=== PATIENT | male | born 1940 | race Caucasian/White ===

== ENCOUNTER → 2016-09-26 | Outpatient (CLI) | payer MEDICARE ==
[~2016-09-26] MED LIST: REGADENOSON 0.4 MG/5 ML DISP.SYRIN. IV ONE
--- NOTE | 2016-09-26 18:53 | PCVCIMAG ---
APPROVED REPORT Study performed: 09/26/2016 07:57:20 EXAM: Comprehensive 2D, Doppler, and color-flow Echocardiogram Other Information Study Quality: Adequate Indications Atrial Fibrillation Hypertension/HDD 2D Dimensions LVEF(%): 39.41 (>50%) IVSd: 12.77 (7-11mm) LVDd: 46.88 mm PWd: 13.33 (7-11mm) LVDs: 37.93 (25-40mm) Left Atrium: 50.78 (27-40mm) Aortic Root: 35.04 mm LV Single Plane 4CH: 51.32 % LV Single Plane 2CH: 58.74 %Banks's LVEF: 55.03 % Biplane EF: 57.1 % Volumes Left Atrial Volume (Systole) Single Plane 4CH: 119.08 mLSingle Plane 2CH: 94.68 mL LA ESV Index: 51.00 mL/m2 Aortic Valve AoV Peak Roby.: 1.35 m/s AO Peak Gr.: 7.30 mmHgLVOT Max P.88 mmHg LVOT Max V: 0.98 m/s Pulmonary Valve PV Peak Roby.: 0.80 m/sPV Peak Gr.: 2.59 mmHg Tricuspid Valve TR Peak Roby.: 2.84 m/s TR Peak Gr.: 32.17 mmHg Left Ventricle The left ventricle is normal size. There is normal LV segmental wall motion. Mild concentric left ventricular hypertrophy. Left ventricular systolic function is normal. LVEF is 50-55%. The left ventricular diastolic function is normal. Right Ventricle Right ventricle is mildly dilated. The right ventricular systolic function is normal. Atria Left atrium is severely dilated. Right atrium is severely dilated. Aortic Valve The aortic valve is normal in structure. No aortic regurgitation is present. There is no aortic valvular stenosis. Mitral Valve The mitral valve is normal in structure. Mild mitral regurgitation. No evidence of mitral valve stenosis. Tricuspid Valve The tricuspid valve is normal in structure. Mild to moderate tricuspid regurgitation with PAP of 42 mmHg. Pulmonic Valve The pulmonary valve is normal in structure. There is no pulmonic valvular regurgitation. Great Vessels The aortic root is normal in size. IVC is normal in size and collapses with >50% inspiration Pericardium There is no pericardial effusion. <Conclusion> The left ventricle is normal size. Mild concentric left ventricular hypertrophy. Left ventricular systolic function is normal. LVEF is 50-55%. Right ventricle is mildly dilated. Left atrium is severely dilated. The aortic valve is normal in structure. Right atrium is severely dilated. Mild to moderate tricuspid regurgitation with PAP of 42 mmHg. Mild mitral regurgitation. The aortic root is normal in size. There is no pericardial effusion.
--- NOTE | 2016-09-26 18:57 | PCVCIMAG ---
APPROVED REPORT Exam: Nuclear Stress Test Indication: Atrial Fibrillation, Chest pain Patient Location: Out-Patient Stress Nurse: Chary Sanchez RN MT Tech:CLAYTON Bird Ht: 5 ft 8 in Wt: 230 lbs BSA: 2.17 m2 HR: 59 bpm BP: 192/99 mmHg BMI: 34.9 Rhythm: Atrial Fibrillation Medical History Medical History: Atrial Fibrillation, HTN, Hyperlipidemia Medications: HCTZ, Ramipril, Simvastatin Allergies: No known drug allergies Cardiac Risk Factors: Age Pretest Chest Pain Characteristics: No chest pain Exercise History: Physically active Physical Disabilities: Back and Knees Meds Held (24 hrs): Held all meds - pt decision NM EXAM: Myocardial Perfusion REST/STRESS Imaging Protocol: Rest Tc-99m/Stress Tc-99m 1 day Resting Data Rest SPECT myocardial perfusion imaging was performed in supine position 45 minutes following the intravenous injection of 17.7 mCi of Tc-99m Sestamibi. Time of rest injection: 0840 Date: 09/26/2016 Pharmacologic Stress Pharmacologic stress test was performed by injecting Regadenoson 0.4 mg IV push followed by the intravenous injection of 44.1 mCi of Tc-99m Sestamibi. Time of stress injection: 1005 Date: 09/26/2016 Administration Route: IV Administration Site: Left Hand Gated Stress SPECT was performed 45 minutes after stress injection. The images were gated to evaluate regional wall motion and calculate left ventricular ejection fraction. Study Quality Study: Good Study Data Post stress, the left ventricular ejection was 75%.. SSS: 2 SRS: 0 SDS: 2 TID = 0.87. Perfusion No evidence of stress induced ischemia or prior myocardial infarction. Wall Motion Normal left ventricular size and function with no regional wall motion abnormalities. Nuclear Conclusion No evidence of stress induced ischemia or prior myocardial infarction. Normal left ventricular size and function with no regional wall motion abnormalities. Post stress, the left ventricular ejection was 75%.. No prior study available for comparison. Interpreted by: Jeronimo Herring MD Electronically Approved: 09/26/2016 12:59:08 Stress Test Details Stress Test: Pharmacologic stress was paired with low level exercise. Reason for pharmacologic stress test: physical limitation. HR Resting HR: 59 bpmMax Heart Rate (APMHR): 143 bpm Max HR Achieved: 103 bpmTarget HR (85% APMHR): 121 bpm % of APMHR: 72 Recovery HR: 69 bpm BP Resting BP: 199/92 mmHg Max BP: 142/88 mmHg Recovery BP: 186/80 mmHg ECG Resting ECG: Atrial Fibrillation Stress ECG: Atrial Fibrillation, isolated PVCs Recovery ECG: Atrial Fibrillation Recovery ST Change: None Clinical Reason for Termination: Completed protocol Stress Symptoms: Leg Fatigue, resolved during recovery. Exercise duration: 4 min 00 sec Exercise capacity: 1.6 METs Symptoms resolved during recovery.
== END | disposition home or self-care (01) ==
LOC: PCVCIMAG 07:53
PROVIDERS: ATTEND Internal Medicine Cardiovascular Disease
DX: I08.1 Rheumatic disorders of both mitral and tricuspid valves (principal); I48.91 Unspecified atrial fibrillation; I10 Essential (primary) hypertension; E78.5 Hyperlipidemia, unspecified; Z79.899 Other long term (current) drug therapy
CPT/HCPCS: 78452; 93017; 93306; A9500; J2785

== ENCOUNTER → 2016-12-26 | Outpatient (CLI) | payer MEDICARE | END | disposition home or self-care (01) | LOC: PCVCCLINIC 13:45 | PROVIDERS: ATTEND Internal Medicine Cardiovascular Disease | DX: I48.91 Unspecified atrial fibrillation (principal); I10 Essential (primary) hypertension; E78.5 Hyperlipidemia, unspecified; Z79.899 Other long term (current) drug therapy | CPT/HCPCS: 93005; G0463 ==

== ENCOUNTER → 2017-08-08 | Outpatient (CLI) | payer MEDICARE | END | disposition home or self-care (01) | LOC: PCVCCLINIC 13:12 | DX: I48.91 Unspecified atrial fibrillation (principal); I10 Essential (primary) hypertension; E78.5 Hyperlipidemia, unspecified; R94.31 Abnormal electrocardiogram [ECG] [EKG]; Z79.899 Other long term (current) drug therapy | CPT/HCPCS: 80061; 93005; G0463 ==

== ENCOUNTER → 2018-05-26 | Outpatient (CLI) | payer MEDICARE | END | disposition home or self-care (01) | LOC: PCVCCLINIC 11:39 | PROVIDERS: ATTEND Internal Medicine Cardiovascular Disease | DX: I48.91 Unspecified atrial fibrillation (principal); I10 Essential (primary) hypertension; I36.1 Nonrheumatic tricuspid (valve) insufficiency; I34.0 Nonrheumatic mitral (valve) insufficiency; I51.7 Cardiomegaly; E78.5 Hyperlipidemia, unspecified | CPT/HCPCS: 36415; 80061; 93005; G0463 ==

== ENCOUNTER → 2018-12-19 | Outpatient (CLI) | payer MEDICARE ==
--- NOTE | 2018-12-19 12:05 | PCVCIMAG ---
APPROVED REPORT Study performed: 12/19/2018 08:31:56 EXAM: Comprehensive 2D, Doppler, and color-flow Echocardiogram Patient Location: Echo lab Status: routine BSA: 2.19 HR: 68 bpmBP: 180/78 mmHg Rhythm: NSR Other Information Study Quality: Adequate Risk Factors: Cardiac Risk Factors: HTN, Hyperlipidemia Indications Atrial Fibrillation tricuspid regurgitation 2D Dimensions IVSd: 13.29 (7-11mm) LVDd: 46.95 mm PWd: 13.34 (7-11mm)Ascending Ao: 35.04 (22-36mm) LVDs: 29.11 (25-40mm) Left Atrium: 51.34 (27-40mm) Aortic Root: 31.96 mm LV Single Plane 4CH: 47.67 % LV Single Plane 2CH: 49.72 % Biplane EF: 48.2 % Volumes Left Atrial Volume (Systole) Single Plane 4CH: 105.93 mLSingle Plane 2CH: 134.11 mL LA ESV Index: 58.00 mL/m2 Aortic Valve AoV Peak Roby.: 1.54 m/s AO Peak Gr.: 9.51 mmHgLVOT Max P.39 mmHg LVOT Max V: 0.92 m/s Pulmonary Valve PV Peak Roby.: 1.10 m/sPV Peak Gr.: 4.89 mmHg Tricuspid Valve TR Peak Roby.: 2.87 m/s TR Peak Gr.: 33.06 mmHg Left Ventricle The left ventricle is normal size. There is normal LV segmental wall motion. Mild concentric left ventricular hypertrophy. Left ventricular systolic function is within lower limits of normal. LVEF is 50%. This study is not technically sufficient to allow evaluation of the LV diastolic function due to atrial fibrillation. Right Ventricle Right ventricle is mildly dilated. The right ventricular systolic function is normal. Atria Left atrium is severely dilated. Right atrium is severely dilated. Aortic Valve The aortic valve is normal in structure. No aortic regurgitation is present. There is no aortic valvular stenosis. Mitral Valve The mitral valve is normal in structure. There is no mitral valve regurgitation noted. No evidence of mitral valve stenosis. Tricuspid Valve The tricuspid valve is normal in structure. Mild to moderate tricuspid regurgitation with PAP of 40 mmHg. Pulmonic Valve The pulmonary valve is normal in structure. Trace pulmonic regurgitation. Great Vessels The aortic root is normal in size. IVC is normal in size and collapses >50% with inspiration. Pericardium There is no pericardial effusion. There is no pleural effusion. <Conclusion> The left ventricle is normal size. Mild concentric left ventricular hypertrophy. LVEF is 50%. This study is not technically sufficient to allow evaluation of the LV diastolic function due to atrial fibrillation. Right ventricle is mildly dilated. Left atrium is severely dilated. Right atrium is severely dilated. The aortic valve is normal in structure. There is no mitral valve regurgitation noted. Mild to moderate tricuspid regurgitation with PAP of 40 mmHg. The aortic root is normal in size. There is no pericardial effusion.
== END | disposition home or self-care (01) ==
LOC: PCVCIMAG 08:55
PROVIDERS: ATTEND Internal Medicine Cardiovascular Disease
DX: I07.1 Rheumatic tricuspid insufficiency (principal); I11.9 Hypertensive heart disease without heart failure; E11.9 Type 2 diabetes mellitus without complications; I48.91 Unspecified atrial fibrillation; E78.5 Hyperlipidemia, unspecified; D68.59 Other primary thrombophilia
CPT/HCPCS: 36415; 80061; 93005; 93306; G0463

== ENCOUNTER → 2019-03-03 | Outpatient (CLI) | payer MEDICARE ==
--- NOTE | 2019-03-03 14:09 | PCVCIMAG ---
APPROVED REPORT Study performed: 03/03/2019 10:26:00 Exam: Stress Echocardiogram Indication: Atrial Fibrillation, dyspnea on exedrtion, htn, dm Patient Location: Echo lab Stress Nurse: Beata Olmstead RN Status: routine Ht: 5 ft 8 in HR: 70 bpm BP: 160/80 mmHg Rhythm: Atrial Fibrillation Procedure The patient underwent an Exercise Stress Test using the Ernie Protocol. Blood pressure, heart rate, and EKG were monitored. An Echocardiogram was performed by education technician in four stages in quad fashion. At peak stress, four selected images were obtained and placed side by side with resting images for comparison. Stress Test Details Stress Test: Exercise stress testing was performed using a Ernie protocol. HR Resting HR: 74 bpmMax Heart Rate (APMHR): 140 bpm Max HR Achieved: 136 bpmTarget HR (85% APMHR): 119 bpm % of APMHR: 97 Recovery HR: 75 bpm HR response to stress: Normal HR response to stress BP Resting BP: 160/80 mmHg Max BP: 190/84 mmHg Recovery BP: 154/80 mmHg BP response to stress: Normal blood pressure response to stress. ECG Resting ECG: Atrial Fibrillation w/ PVCs Stress ECG: Atrial Fibrillation ST Change: Normal Arrhythmia: frequent PVCs Recovery ECG: Atrial Fibrillation Recovery ST Change: Normal Recovery Arrhythmia: PVCs Clinical Reason for Termination: Maximal effort, Dyspnea Stress Symptoms: Dyspnea Exercise duration: 4 min 6 sec Highest Stage Achieved: Stage 2: 2.5 mph at 12% grade. Exercise capacity: 7 METs Overall Exercise Capacity for Age: Poor Scale: Sedentary Angina Score: None Pre-Stress Echo The resting Echocardiogram showed normal left ventricular contractility with an estimated Ejection Fraction of about 50-55%. The resting echocardiogram demonstrated normal wall motion in all wall segments. Post-Stress Echo The stress Echocardiogram showed normal left ventricular contractility with an estimated Ejection Fraction of about 60-65%. Compared to rest, there were no stress-induced wall motion abnormalities. Clinical No clinical or ECG evidence for ischemia. Conclusion Clinical Response: Non-ischemic Exercise Capacity: Below Average Stress ECG Response: Non-ischemic Stress Echo Images: Non-ischemic The left ventricle is normal in size and wall thickness in both the rest and stress images. Normal color doppler. No regurgitation or stenosis present on pulmonic, mitral, and aortic valves. Mild tricuspid regurgitation with PAP of 45 mmHg. Other Information Study Quality: Adequate <Conclusion> The left ventricle is normal in size and wall thickness in both the rest and stress images. Normal color doppler. No regurgitation or stenosis present on pulmonic, mitral, and aortic valves. Mild tricuspid regurgitation with PAP of 45 mmHg.
== END | disposition home or self-care (01) ==
LOC: PCVCIMAG 10:49
PROVIDERS: ATTEND Internal Medicine Cardiovascular Disease
DX: I36.1 Nonrheumatic tricuspid (valve) insufficiency (principal); I48.91 Unspecified atrial fibrillation; R06.09 Other forms of dyspnea; I10 Essential (primary) hypertension; E11.9 Type 2 diabetes mellitus without complications
CPT/HCPCS: 93325; 93351